=== PATIENT | male | born 1945 | race Caucasian/White ===

== ENCOUNTER → 2020-03-04 | Outpatient (CLI) | payer MEDICARE ==
--- NOTE | 2020-03-04 11:42 | XR ---
EXAMINATION TYPE: XR KUB DATE OF EXAM: 03/04/2020 Comparison: None Clinical History: 74-year-old male N20.0 Findings: Cholecystectomy clips. Moderate stool burden. 1.4 cm and adjacent 6 mm calculus right mid abdomen. 5 mm small calculus left mid abdomen. There is a 7 mm calcification in the right side of the pelvis sheridan t could represent a phlebolith. Nonobstructive bowel gas pattern. Degenerated dextro convex scoliosis lower lumbar spine. Impression: Bilateral nephrolithiasis, largest on the right measuring 1.4 cm. There is either a 7 mm calculus claudio medina phlebolith in the right side of the pelvis.
== END | disposition home or self-care (01) ==
LOC: RADXRMAIN 10:36
PROVIDERS: ATTEND Urology
DX: N20.0 Calculus of kidney (principal)
CPT/HCPCS: 74018

== ENCOUNTER → 2020-03-06 | Outpatient (CLI) | payer MEDICARE ==
--- NOTE | 2020-03-06 14:44 | CT ---
EXAMINATION TYPE: CT abdomen pelvis wo con DATE OF EXAM: 03/06/2020 COMPARISON: None HISTORY: Right sided flank pain. CT DLP: 1045 mGycm Examination of the solid and hollow viscera is limited given the lack of contrast. FINDINGS: LUNG BASES: No evidence for nodule. No evidence for infiltrate. LIVER/GB: The gallbladder is surgically absent. No space-occupying hepatic lesion. PANCREAS: No pancreatic mass identified. No inflammatory process seen. SPLEEN: No evidence for splenomegaly. No intrasplenic lesions seen. ADRENALS: No adrenal nodules identified. No evidence for thickening. KIDNEYS: 1.1 cm calculus right UPJ without significant hydronephrosis. 6.3 mm nonobstructing midpole calculus right kidney. The left kidney demonstrates 2 adjacent calculi left upper pole nonobstructing measuring a total of 6.6 mm. No additional calculi seen. No hydronephrosis is present at this time. Hypoattenuating renal lesions may reflect cysts. Largest lesion is noted involving the midpole anteri or lip left kidney and 6 cm. BOWEL: Appendix has a normal appearance. No evidence of bowel obstruction. No inflammatory process. Lymph nodes: No evidence for adenopathy greater than 1 cm. Abdominal aorta: Atheromatous changes seen. No evidence for aneurysm. Genital organs: No significant abnormality. Other: No significant abnormality. IMPRESSION: 1. Bilateral renal calculi. Largest calculus is noted within the right renal pelvis without significa nt hydronephrosis appreciated at this time.
== END | disposition home or self-care (01) ==
LOC: RADCTMAIN 14:19
PROVIDERS: ATTEND Urology
DX: N20.0 Calculus of kidney (principal); Z79.01 Long term (current) use of anticoagulants
CPT/HCPCS: 74176

== ENCOUNTER → 2020-06-03 | Outpatient (CLI) | payer MEDICARE ==
[2020-06-03 10:00] LABS: Basophils # (A) 0.1 k/uL (0-0.2); Basophils % (A) 1 %; Eosinophils # (A) 0.3 k/uL (0-0.7); Eosinophils % (A) 4 %; HCT 47.2 % (39.0-53.0); HGB 14.9 gm/dL (13.0-17.5); Lymphocytes # (A) 1.4 k/uL (1.0-4.8); Lymphocytes % (A) 18 %; MCHC 31.7 g/dL (31.0-37.0); MCV 88.6 fL (80.0-100.0); Mean Platelet Volume 7.7; Monocytes # (A) 0.7 k/uL (0-1.0); Monocytes % (A) 9 %; Neutrophils # (A) 5.2 k/uL (1.3-7.7); Neutrophils % (A) 66 %; Platelet Count 195 k/uL (150-450); RBC 5.33 m/uL (4.30-5.90); RDW 13.1 % (11.5-15.5); WBC 7.8 k/uL (3.8-10.6)
[2020-06-03 10:03] LABS: Appearance,Urine Clear (Clear); Bacteria,Urine Rare /hpf; Bilirubin,Urine Negative (Negative); Blood,Urine Moderate (Negative); Color,Urine Yellow; Glucose,Urine (UA) Negative (Negative); Ketones,Urine Negative (Negative); Leukocyte Esterase,Urine Negative (Negative); Mucus,Urine Occasional /hpf; Nitrite,Urine Negative (Negative); PH, Urine 5.5 (5.0-8.0); Protein,Urine Negative (Negative); RBC,Urine 145 /hpf (0-5); Specific Gravity,Urine 1.022 (1.001-1.035); Urobilinogen,Urine <2.0 mg/dL (<2.0); WBC,Urine 2 /hpf (0-5)
[2020-06-03 10:27] LABS: Albumin 4.4 g/dL (3.5-5.0); Calcium 9.4 mg/dL (8.4-10.2); Potassium 4.4 mmol/L (3.5-5.1); Total Bilirubin 0.6 mg/dL (0.2-1.3); Total Protein 7.5 g/dL (6.3-8.2)
== END | disposition home or self-care (01) ==
LOC: LABWHC1 08:25
PROVIDERS: ATTEND Urology
DX: Z01.818 Encounter for other preprocedural examination (principal); N20.0 Calculus of kidney; E78.49 Other hyperlipidemia; E03.8 Other specified hypothyroidism; R53.83 Other fatigue; R31.0 Gross hematuria
CPT/HCPCS: 36415; 80053; 80061; 81001; 84443; 85025; 86850; 86900; 86901; 87086; 93005

== ENCOUNTER 2020-06-10 06:12 | Day surgery (SDC) | payer MEDICARE ==
[2020-06-08 13:22] VITALS: BMI 32.5
--- NOTE | 2020-06-09 20:39 | P.GSHP ---
History of Present Illness H&P Date: 06/09/20 74 yo male with a history of stones was seen this summer for a right ureteral stone He passed it. He now comes for right pcnl to three stones in the renal pelvis. The risks, complications and alternatives have been discussed. - Constitutional Constitutional: Denies chills, Denies fever - EENT Eyes: denies blurred vision, denies pain Ears, nose, mouth and throat: Denies headache, Denies sore throat - Cardiovascular Cardiovascular: Denies chest pain, Denies shortness of breath - Respiratory Respiratory: Denies cough, Denies 7 - Gastrointestinal Gastrointestinal: Denies abdominal pain, Denies diarrhea, Denies nausea, Denies vomiting - Genitourinary (Female) Genitourinary: Denies dysuria, Denies hematuria - Genitourinary (Male) Genitourinary: Denies dysuria, Denies hematuria - Musculoskeletal Musculoskeletal: Denies myalgias - Integumentary Integumentary: Denies pruritus, Denies rash - Neurological Neurological: Denies numbness, Denies weakness - Psychiatric Psychiatric: Denies anxiety, Denies depression - Endocrine Endocrine: Denies fatigue, Denies weight change Past Medical History Past Medical History: GERD/Reflux, Hyperlipidemia, Hypertension, Myocardial Infarction ([place]), Thyroid Disorder Additional Past Medical History / Comment(s): Current Kidney stone, blood in urine. Bone spurs on his back. Last Myocardial Infarction Date:: 2001 History of Any Multi-Drug Resistant Organisms: None Reported Past Surgical History: Cholecystectomy, Heart Catheterization With Stent Past Anesthesia/Blood Transfusion Reactions: Postoperative Nausea & Vomiting (PONV) Date of Last Stent Placement:: 2001 Smoking Status: Never smoker - Past Family History Mother Family Medical History: Cancer Medications and Allergies Home Medications Medication Instructions Recorded Confirmed Type Aspirin EC [Ecotrin Low Dose] 81 mg PO DAILY 06/08/20 06/08/20 History Celecoxib [CeleBREX] 200 mg PO DAILY PRN 06/08/20 06/08/20 History Evolocumab [Repatha Syringe] 140 mg SQ Q14D 06/08/20 06/08/20 History Levothyroxine Sodium [Synthroid] 100 mcg PO DAILY 06/08/20 06/08/20 History Naproxen Sodium [Aleve] 220 mg PO BID PRN 06/08/20 06/08/20 History Omeprazole [PriLOSEC] 40 mg PO DAILY 06/08/20 06/08/20 History atenoloL [Atenolol] 25 mg PO DAILY 06/08/20 06/08/20 History Allergies Allergy/AdvReac Type Severity Reaction Status Date / Time clopidogrel [From Plavix] Allergy Dyspnea, Verified 06/08/20 12:59 hives Zmztoha-Njq-Puy Reductase AdvReac muscle Verified 06/08/20 16:19 Inhibitor aches Surgical - Exam - General well developed, well nourished, no distress - Eyes PERRL - ENT no hearing loss - Neck trachea midline - Respiratory normal expansion, normal respiratory effort - Cardiovascular Rhythm: regular - Abdomen Abdomen: soft, non tender - Genitourinary normal penis with no external lesions, testicles present - Integumentary no rash, no growths - Neurologic normal coordination, normal sensation - Musculoskeletal normal gait, normal posture - Psychiatric oriented to time, oriented to person, oriented to place, speech is normal, memory intact Results - Imaging CT scan - abdomen: report reviewed, image reviewed CT scan - pelvis: report reviewed, image reviewed Assessment and Plan Assessment: Impression: Right renal stones large Plan: Pcnl right
[~2020-06-10 06:12] MED LIST: DEXAMETHASONE SOD PHOSPHATE 10 MG/ML 1 ML VIAL IV ONE; LIDOCAINE 1% (10MG/ML) FOR IV START INTRADERMA PRN; MIDAZOLAM 2 MG/2 ML VIAL IV PRN; fentaNYL (PF) 50 MCG/ML 2 ML AMP IV PRN
[2020-06-10] MEDS ORDERED: ONDANSETRON 4 MG/2 ML VIAL ONE (06:48)
[2020-06-10] MEDS: LACTATED RINGERS 1,000 ML IV SCH ×2 (06:59→07:32)
[2020-06-10] MEDS ORDERED: LIDOCAINE 1% INJ 10MG/ML (20 ML MDV) ONE (07:25)
[2020-06-10] MEDS ORDERED: SUCCINYLCHOLINE CHLORIDE 100 MG/5 ML SYR IV ONE (07:25)
[2020-06-10] MEDS ORDERED: ePHEDrine SULFATE/0.9% NACL/PF 50 MG/5 ML SYRINGE IV ONE (07:25)
[2020-06-10] MEDS ORDERED: PROPOFOL 10 MG/ML 20 ML VIAL IV ONE (07:25)
[2020-06-10] MEDS ORDERED: GLYCOPYRROLATE 0.2 MG/ML 2 ML VIAL ONE (07:25)
[2020-06-10] MEDS ORDERED: fentaNYL (PF) 50 MCG/ML 2 ML AMP ONE (07:25)
[2020-06-10] MEDS ORDERED: NEOSTIGMINE 1 MG/ML 10 ML VIAL ONE (07:25)
[2020-06-10] MEDS ORDERED: MIDAZOLAM 2 MG/2 ML VIAL ONE (07:25)
[2020-06-10] MEDS ORDERED: ROCURONIUM BROMIDE 10 MG/ML 5 ML VIAL IV ONE (07:25)
[2020-06-10] MEDS ORDERED: PHENYLEPHRINE-0.9% NACL SYG 1 MG/10 ML SYRINGE ONE (07:25)
--- NOTE | 2020-06-10 08:03 | XR ---
EXAMINATION TYPE: XR abdomen 1V DATE OF EXAM: 06/10/2020 6:23 AM CLINICAL HISTORY: Kidney stones, preoperative study TECHNIQUE: Single supine KUB image of the abdomen is obtained. COMPARISON: CT abdomen and pelvis March 06, 2016. Abdominal x-ray March 04, 2020. FINDINGS: Stable 14 mm central right renal calculus in the pelvis. Stable 8 mm mid pole cortical calc ulus right kidney. Stable 8 mm left renal calculus over left 12th rib upper pole level. Persistent dextroconvex scoliosis with moderate to severe multilevel disc space narrowing, vacuum dis c phenomenon, spurring, and endplate sclerosis. Overall nonobstructive bowel gas pattern. Cholecystec tavia clips are redemonstrated. IMPRESSION: As above.
[2020-06-10] MEDS ORDERED: IOHEXOL 350 MG/ML 50 ML in EMPTY BAG 1 BAG IRRIGATION ONE (08:24)
[2020-06-10] MEDS ORDERED: LACTATED RINGERS 1,000 ML IV ONE ×2 (08:57)
[2020-06-10] MEDS ORDERED: ACETAMINOPHEN TAB 325 MG TAB PO PRN (09:22)
[2020-06-10] MEDS ORDERED: ONDANSETRON 4 MG/2 ML VIAL IVP PRN (09:22)
[2020-06-10] MEDS ORDERED: MAG HYDROX/AL HYDROX/SIMETH 30 ML CUP PO PRN (09:22)
[2020-06-10] MEDS ORDERED: HYDROmorphone PCA 10 MG/50 ML BAG IV PRN (09:24)
[2020-06-10] MEDS ORDERED: KETOROLAC 15 MG/ML 1 ML VIAL IVP PRN (09:24)
[2020-06-10] MEDS ORDERED: NALOXONE 0.4 MG/ML 1 ML VIAL IV PRN (09:24)
--- NOTE | 2020-06-10 09:29 | P.OP ---
Date of Procedure: 06/10/20 Preoperative Diagnosis: Right renal calculus Postoperative Diagnosis: Same Procedure(s) Performed: Cystoscopy, placement of right ureteral occluding balloon catheter, percutaneous nephrostomy (Dr. Cagle) percutaneous nephrostolithotomy with ultrasound, fle xible nephroscopy, placement of 10 J nephrostomy tube Anesthesia: PATTIE Surgeon: Leonel Edmondson Estimated Blood Loss (ml): 50 Pathology: other (Stone) Condition: stable Disposition: PACU Indications for Procedure: The patient is 74. He has kidney stone disease. He has a 15 mm renal pelvic stone and a small calyceal stone. He comes for percutaneous nephrostolithotomy right Description of Procedure: Patient is brought to the operating suite. He is given a general endotracheal anesthesia on the transport gurney. He's placed in a frog position with a sterile prep and drape. Cystoscopy of the Foroblique lens 21-Stateless sheath to find a normal urethra. The prostate is not obstructing. The right ureteral orifice is identified and intubated with a 5-Stateless occluding balloon catheter passed up into the renal pelvis. After the cystoscope was removed a 16-Stateless Lewis catheters introduced and secured to the ureteral catheter The patient is placed in a prone position with care to airways and extremities. Dr. Cagle of radiology performed nephrostomy access to the right lower pole calyx. I dilate the tract to 30-Stateless. I introduced the rigid sheath into the collecting system. Clot is removed. The large right renal pelvic stone and a small calyceal stone identified. The renal pelvic stone is broken with ultrasonic technique. The larger fragments or grasp and removed. The small calyceal stone is removed. I looked throughout the collecting system including intraoperative nephrostogram without evidence of remaining stone. I looked down the ureter there is no stone. A 10-Stateless J nephrostomy tube was introduced into the renal pelvis. It is secured to the skin. The patient is awakened and returned recovery room in good condition he tolerated procedure well Impression successful removal right renal stones.
--- NOTE | 2020-06-10 09:34 | FL ---
EXAMINATION TYPE: FL Perc Nephrostomy New Access DATE OF EXAM: 06/10/2020 COMPARISON: CT 03/06/2020, abdomen 06/10/2020 HISTORY: Right nephrolithiasis. PROCEDURE: Maximal barrier technique was utilized, hand hygiene obtained with soap and water and alcohol-based h and rub. The skin overlying the right kidney was localized using fluoroscopy and the overlying skin prepped and draped. Skin kalin was made with a scalpel. Access was gained under fluoroscopy, followin g placement of a ureteral occlusion balloon by the referring clinician and instillation of air in the renal collecting system with a 21-gauge needle to right kidney. A suitable posterior calyx was chos en. A 0.018 inch wire was advanced. The access site was dilated following exchange for a 5 Cook Islander Kumpe catheter, 0.035 inch angled Glidewire and selection of the ureter, access site was upsized, saf ety wire deployed and subsequently a sheath was advanced into the renal pelvis following dilation wit h balloon along the tract. The patient underwent nephrolithotomy by the referring clinician. The pa tient remained in stable condition without complication. The patient was discharged to observation i n the care of anesthesia. 2 minutes 51 seconds fluoroscopy time, 6 intraoperative C-arm images document the procedure IMPRESSION: STATUS POST NEPHROSTOMY PLACEMENT FOR NEPHROLITHOTOMY WITH FLUOROSCOPIC GUIDANCE. THIS PROCEDURE PER FORMED BY THE UNDERSIGNED.
[2020-06-10] MEDS ORDERED: HYDROmorphone 1 MG/ML 1 ML SYRINGE IVP ONE ×2 (09:55→10:20)
[2020-06-10] MEDS: DEXTROSE 5%-0.45% NACL 1,000 ML IV SCH ×2 (13:33→20:12)
[2020-06-10] MEDS ORDERED: BENZOCAINE/MENTHOL LOZENG 1 EACH LOZENGE MUCOUS MEM PRN (19:43)
[2020-06-11] MEDS ORDERED: NALOXONE 0.4 MG/ML 1 ML VIAL IV PRN (01:52)
[2020-06-11] MEDS ORDERED: ONDANSETRON 4 MG/2 ML VIAL IVP PRN (01:52)
[2020-06-11] MEDS: DEXTROSE 5%-0.45% NACL 1,000 ML IV SCH (05:26)
[2020-06-11] MEDS ORDERED: LEVOTHYROXINE 100 MCG TAB PO SCH (06:30)
--- NOTE | 2020-06-11 07:29 | P.DS ---
Providers Date of admission: 06/10/2020 Attending physician: Leonel Edmondson Primary care physician: [facility] Course: The patient is 74. He has a history of stones. He has an obstructing 15 mm UPJ stone and a small calyceal stone. He is admitted yesterday for percutaneous nephrostolithotomy on the right. He underwent this successfully. He did well overnight. He'll be discharged home today with his nephrostomy tube. He'll be given a prescription of [place]. He'll go home with the nephrostomy tube. He'll follow-up in the office next week for nephrostomy tube removal. Condition is good. Postoperative instructions of been given. Patient Condition at Discharge: Good Plan - Discharge Summary Discharge Rx Participant: No New Discharge Prescriptions: New HYDROcodone/APAP 5-325MG [[place] 5-325] 1 tab PO Q4HR PRN #10 tab PRN Reason: Pain No Action Naproxen Sodium [Aleve] 220 mg PO BID PRN PRN Reason: Pain Levothyroxine Sodium [Synthroid] 100 mcg PO DAILY Omeprazole [PriLOSEC] 40 mg PO DAILY Celecoxib [CeleBREX] 200 mg PO DAILY PRN PRN Reason: Pain atenoloL [Atenolol] 25 mg PO DAILY Aspirin EC [Ecotrin Low Dose] 81 mg PO DAILY Evolocumab [Repatha Syringe] 140 mg SQ Q14D Discharge Medication List Aspirin EC [Ecotrin Low Dose] 81 mg PO DAILY 06/08/20 [History] Celecoxib [CeleBREX] 200 mg PO DAILY PRN 06/08/20 [History] Evolocumab [Repatha Syringe] 140 mg SQ Q14D 06/08/20 [History] Levothyroxine Sodium [Synthroid] 100 mcg PO DAILY 06/08/20 [History] Naproxen Sodium [Aleve] 220 mg PO BID PRN 06/08/20 [History] Omeprazole [PriLOSEC] 40 mg PO DAILY 06/08/20 [History] atenoloL [Atenolol] 25 mg PO DAILY 06/08/20 [History] HYDROcodone/APAP 5-325MG [[place] 5-325] 1 tab PO Q4HR PRN #10 tab 06/11/20 [Rx] Follow up Appointment(s)/Referral(s): Leonel Edmondson MD [STAFF PHYSICIAN] - 10/06/20 Discharge Disposition: HOME SELF-CARE
[2020-06-11] MEDS ORDERED: PANTOPRAZOLE 40 MG TABLET PO SCH (07:30)
[2020-06-11 08:45] VITALS: BP 116/63; PULSE 63; RESP 15; TEMP 98
[2020-06-11] MEDS ORDERED: ASPIRIN 81 MG PO SCH (09:00)
[2020-06-11] MEDS ORDERED: atenoloL 25 MG TAB PO SCH (09:00)
== END 2020-06-11 12:39 | disposition home or self-care (01) ==
LOC: OR 06:12 → 4SSUR 11:23 → OR 06-11 12:39
PROVIDERS: ATTEND Urology
DX: N20.0 Calculus of kidney (principal); I25.2 Old myocardial infarction; I25.5 Ischemic cardiomyopathy; I25.10 Atherosclerotic heart disease of native coronary artery without angina pectoris; I10 Essential (primary) hypertension; E07.9 Disorder of thyroid, unspecified; E78.2 Mixed hyperlipidemia; E66.9 Obesity, unspecified; Z88.8 Allergy status to other drugs, medicaments and biological substances; Z79.1 Long term (current) use of non-steroidal anti-inflammatories (NSAID); Z79.82 Long term (current) use of aspirin; Z79.890 Hormone replacement therapy; Z79.899 Other long term (current) drug therapy; Z68.32 Body mass index [BMI] 32.0-32.9, adult; K21.9 Gastro-esophageal reflux disease without esophagitis; Z95.5 Presence of coronary angioplasty implant and graft; Z90.49 Acquired absence of other specified parts of digestive tract; Z80.9 Family history of malignant neoplasm, unspecified
CPT/HCPCS: 82365; 50432; 74018; 50080; C1769 ×4; C2628; C1894; C1729; J1100; J0690; J2405; J1170 ×2; Q9967; 86850; 86900; 86901

== ENCOUNTER → 2022-03-04 | Outpatient (CLI) | payer MEDICARE, BC ==
[2022-03-04 10:41] LABS: HCT 42.7 % (39.6-50.0); HGB 14.1 g/dL (13.0-17.0); MCH 28.6 pg (27.0-32.0); MCV 86.6 fL (80.0-97.0); Mean Platelet Volume 11.1 fL (9.5-12.2); NRBC Per 100 WBC 0 /100 WBCS (0.0-0.0); Platelet Count 160 X 10*3/uL (140-440); RBC 4.93 X 10*6/uL (4.40-5.60); RDW 13.4 % (11.5-14.5); WBC 6.44 X 10*3/uL (4.50-10.00)
[2022-03-04 14:58] LABS: African American GFR (CKD) 75.7 (60.0-200.0); Anion Gap 13.2 mmol/L (10.00-18.00); Blood Urea Nitrogen 22.7 mg/dL (9.0-27.0); Carbon Dioxide 21.7 mmol/L (20.0-27.5); Non-African American GFR(CKD) 65.3 (60.0-200.0); Potassium 3.9 mmol/L (3.5-5.5)
== END | disposition home or self-care (01) ==
LOC: LABPAT 07:34
PROVIDERS: ATTEND Internal Medicine
DX: Z01.812 Encounter for preprocedural laboratory examination (principal); R07.9 Chest pain, unspecified
CPT/HCPCS: 80051; 82565; 84520; 85027

== ENCOUNTER 2022-03-15 08:08 | Day surgery (SDC) | payer MEDICARE ==
[2022-03-11 08:34] VITALS: BMI 32.5
[~2022-03-15 08:08] MED LIST changes: +ALPRAZolam 0.25 MG TAB PO PRN; +ALPRAZolam 0.5 MG TAB PO PRN; +ASPIRIN 325 MG TAB PO STA; -DEXAMETHASONE SOD PHOSPHATE 10 MG/ML 1 ML VIAL IV ONE; +HEPARIN SODIUM,PORCINE 10,000 UNIT in SODIUM CHLORIDE 0.9% 1,000 ML IRRIGATION PRN; +HEPARIN SODIUM,PORCINE 2,500 UNIT in SODIUM CHLORIDE 0.9% 250 ML IRRIGATION PRN; -LIDOCAINE 1% (10MG/ML) FOR IV START INTRADERMA PRN; -MIDAZOLAM 2 MG/2 ML VIAL IV PRN; +NITROGLYCERIN SL TABS 0.4 MG TAB SUBLINGUAL PRN; +SODIUM CHLORIDE 0.9% 1,000 ML in EMPTY BAG 1 BAG IV SCH; -fentaNYL (PF) 50 MCG/ML 2 ML AMP IV PRN
[2022-03-15] MEDS ORDERED: SODIUM CHLORIDE 0.9% 1,000 ML IV ONE (08:20)
[2022-03-15 08:52] VITALS: RESP 16; TEMP 97.9
[2022-03-15] MEDS ORDERED: HEPARIN SODIUM 1,000 UN/ML (10ML VL) ONE (08:55)
[2022-03-15] MEDS ORDERED: VERAPAMIL 2.5 MG/ML 2 ML AMP ONE (08:55)
[2022-03-15] MEDS ORDERED: fentaNYL (PF) 50 MCG/ML 2 ML AMP ONE (09:00)
[2022-03-15] MEDS ORDERED: LIDOCAINE 1% INJ 10MG/ML (5 ML VIAL-PF) SQ ONE ×2 (09:21→09:25)
[2022-03-15] MEDS ORDERED: MIDAZOLAM 2 MG/2 ML VIAL IV ONE (09:21)
[2022-03-15] MEDS ORDERED: fentaNYL (PF) 50 MCG/ML 2 ML AMP IV ONE (09:21)
[2022-03-15] MEDS ORDERED: VERAPAMIL SYRINGE (5 MG/10 ML) INTRAARTER ONE (09:27)
[2022-03-15] MEDS ORDERED: HEPARIN SODIUM 1,000 UN/ML (10ML VL) IV ONE (09:30)
[2022-03-15] MEDS ORDERED: IOPAMIDOL-370 125ML BTL INJ ONE (09:39)
[2022-03-15 14:17] VITALS: BP 127/71; PULSE 63
--- NOTE | 2022-03-15 20:02 | P.CARDCATH ---
Description of Procedure: PROCEDURES PERFORMED: Bilateral coronary angiography, Left heart catheterization INDICATION: Abnormal stress test with inferior infarct by MPI with periinfarct ischemia, known CAD with prior PCI CONSENT:I have discussed the risks, benefits and alternative therapies for the above-mentioned procedure and for both sedation/analgesia as well as necessary blood product administration, if indicated, as they pertain to this patient. The patient has indicated understanding and acceptance of the risks and procedures discussed. PROCEDURE: After the risks, benefits and alternatives of the above mentioned procedure explained in detail with the patient, informed consent was obtained. Patient was taken to the catheterization lab and prepped and draped in usual fashion. 1% lidocaine was used to anesthetize the right radial artery. A 6- Sinhala sheath was placed in the right radial artery using modified Seldinger technique. Left coronary angiography was performed with a 5-Sinhala JL 3.5 catheter and right coronary angiography was performed with a 5 JR5 catheter in various views. The FR5 catheter was advanced into the LV and pressures were obtained. A TR band was placed and the sheath was removed with hemostasis was achieved. The patient tolerated the procedure well. Patient was transported back to the post catheterization holding area in stable condition. Conscious Sedation: Patient was monitored under the direct supervision of vision of myself for conscious sedation using Versed and fentanyl for a total duration of 16 minutes HEMODYNAMICS: Aorta: 133/74 LV: 138/4, LVEDP: 14mmHg SELECTIVE CORONARY ARTERIOGRAPHY: LEFT MAIN: The left main is a large caliber vessel which bifurcates into the LAD and circumflex. There is no significant stenosis. LEFT ANTERIOR DESCENDING CORONARY ARTERY: LAD is a large caliber vessel which wraps around to the apex. There is a diagonal 1 which is small to moderate caliber with a proximal 60% diagonal 1 stenosis. The mid LAD has a 50% stenosis and otherwise there are mild luminal irregularities. There are left to right collaterals to the RCA. LEFT CIRCUMFLEX CORONARY ARTERY: Left circumflex is a moderate to large caliber vessel with mild luminal irregularities. RIGHT CORONARY ARTERY: The right coronary artery is a large caliber vessel which gives off a PDA and PLV branch and is the dominant vessel. The RCA gives off a marginal branch and after the marginal, there is a stent which has 100% stenosis. FINAL IMPRESSION: 1. CAD as described above including 100% RCA stenosis with left to right collaterals, 50% mid LAD stenosis, 60% diagonal 1 stenosis. 2. Normal left sided filling pressures PLAN: 1. Aggressive risk factor modification per most recent ACC/AHA guidelines. 2. Ischemia only noted in the RCA territory with additional mild to moderate disease on the left system. Continue to treat medically and monitor symptoms. If patient has significant symptoms, may consider PCI PROGRAM MANUFACTURING LEADER RCA or functional assessment of LAD/ diagonal lesions.
== END 2022-03-15 14:13 | disposition home or self-care (01) ==
LOC: CATHCVL 08:08
PROVIDERS: ATTEND Internal Medicine
DX: I25.10 Atherosclerotic heart disease of native coronary artery without angina pectoris (principal); I25.82 Chronic total occlusion of coronary artery; E78.5 Hyperlipidemia, unspecified; I10 Essential (primary) hypertension; Z87.442 Personal history of urinary calculi; R01.1 Cardiac murmur, unspecified; Z20.822 Contact with and (suspected) exposure to COVID-19; R94.39 Abnormal result of other cardiovascular function study; Z82.49 Family history of ischemic heart disease and other diseases of the circulatory system; Z79.82 Long term (current) use of aspirin; Z79.890 Hormone replacement therapy; Z79.899 Other long term (current) drug therapy; Z88.8 Allergy status to other drugs, medicaments and biological substances
CPT/HCPCS: 93458; 87635; C1769; C1894; J2250; J2001; J3010; J1644; Q9967

== ENCOUNTER 2022-05-20 08:13 | Day surgery (SDC) | payer MEDICARE ==
[~2022-05-20 08:13] MED LIST changes: -ALPRAZolam 0.25 MG TAB PO PRN; -ALPRAZolam 0.5 MG TAB PO PRN; -ASPIRIN 325 MG TAB PO STA; -HEPARIN SODIUM,PORCINE 10,000 UNIT in SODIUM CHLORIDE 0.9% 1,000 ML IRRIGATION PRN; -HEPARIN SODIUM,PORCINE 2,500 UNIT in SODIUM CHLORIDE 0.9% 250 ML IRRIGATION PRN; +LACTATED RINGERS 1,000 ML IV SCH; -NITROGLYCERIN SL TABS 0.4 MG TAB SUBLINGUAL PRN; -SODIUM CHLORIDE 0.9% 1,000 ML in EMPTY BAG 1 BAG IV SCH
[2022-05-20 08:56] VITALS: TEMP 97.8
[2022-05-20] MEDS ORDERED: PROPOFOL 10 MG/ML 20 ML VIAL IV ONE (08:57)
--- NOTE | 2022-05-20 08:58 | P.GSHP ---
History of Present Illness H&P Date: 05/20/22 76yo M presents for screening colonoscopy. States last colonoscopy was many years ago and he does have a history of polyps. No family history of colon cancer. Denies blood in stool. States he has occasional discomfort from hemorrhoids. - Review of Systems All systems: negative Past Medical History Past Medical History: GERD/Reflux, Hyperlipidemia, Hypertension, Myocardial Infarction ([place]), Syncope, Thyroid Disorder Additional Past Medical History / Comment(s): arthritis arms back. + cologard, 2001 [place], Last Myocardial Infarction Date:: 2001 History of Any Multi-Drug Resistant Organisms: None Reported Past Surgical History: Appendectomy, Heart Catheterization, Heart Catheterization With Stent Additional Past Surgical History / Comment(s): heart cath with a stent 2001,heart cath 04/01 stent plugged veins grew around stent per pt, Past Anesthesia/Blood Transfusion Reactions: Postoperative Nausea & Vomiting (PONV) Additional Past Anesthesia/Blood Transfusion Reaction / Comment(s): no blood transfusions Date of Last Stent Placement:: 2001 Smoking Status: Never smoker - Past Family History Mother Additional Family Medical History / Comment(s): unsure Father Additional Family Medical History / Comment(s): bypass surgery Medications and Allergies Home Medications Medication Instructions Recorded Confirmed Type Aspirin EC [Ecotrin Low Dose] 81 mg PO DAILY 06/08/20 05/19/22 History Celecoxib [CeleBREX] 200 mg PO DAILY PRN 06/08/20 05/19/22 History Evolocumab [Repatha Syringe] 140 mg SQ Q14D 06/08/20 05/20/22 History Levothyroxine Sodium [Synthroid] 125 mcg PO DAILY 06/08/20 05/20/22 History Naproxen Sodium [Aleve] 220 mg PO BID PRN 06/08/20 05/19/22 History Omeprazole [PriLOSEC] 40 mg PO DAILY 06/08/20 05/20/22 History atenoloL 25 mg PO BID 06/08/20 05/20/22 History Nitroglycerin Sl Tabs [Nitrostat] 0.4 mg SUBLINGUAL Q5M PRN 03/11/22 05/19/22 History Allergies Allergy/AdvReac Type Severity Reaction Status Date / Time clopidogrel [From Plavix] Allergy Dyspnea, Verified 05/20/22 08:44 hives Uyirjlw-YZJ-FcI Reductase AdvReac muscle Verified 05/20/22 08:44 Inhibitor aches [Veesywd-Vth-Pcs Reductase Inhibitor] Surgical - Exam Osteopathic Statement: *. No significant issues noted on an osteopathic structural exam other than those noted in the History and Physical/Consult. Vital Signs Temp Pulse Resp BP Pulse Ox 97.8 F 65 18 133/67 98 05/20/22 08:38 05/20/22 08:38 05/20/22 08:38 05/20/22 08:38 05/20/22 08:38 - General well nourished, no distress - Eyes normal ocular movement - ENT no hearing loss - Neck trachea midline - Abdomen Abdomen: soft, non tender Assessment and Plan Plan: 76yo M presents for screening colonoscopy. Risks, benefits and alternatives were provided prior to obtaining consent. Further recommendations after procedure is complete.
--- NOTE | 2022-05-20 09:13 | P.PCN ---
Date of Procedure: 05/20/22 Preoperative Diagnosis: Screening for colon cancer Postoperative Diagnosis: Sigmoid colon polyp Diverticulosis Procedure(s) Performed: Colonoscopy with hot snare polypectomy Anesthesia: MAC Surgeon: Anmol Zapata Pathology: other (Sigmoid polyp) Condition: stable Disposition: same day Indications for Procedure: 76yo M presents for screening colonoscopy. Risks, benefits and alternatives were provided. Operative Findings: Sigmoid polyp Diverticulosis Description of Procedure: The patient was brought to the endoscopy suite. The patient was then placed in left lateral decubitus position and adequate sedation was achieved using conscious sedation. A digital rectal exam was performed and internal hemorrhoids were palpated. An endoscope was then placed in the rectum and advanced to the cecum as identified by landmarks including the appendix orifice and the ileocecal valve. The prep was good. The colonoscope was then slowly withdrawn, examining for any mucosal abnormalities. The cecum, ascending, transverse, descending and sigmoid colon were visualized adequately. There were no large neoplastic lesions noted throughout the colon. Small polyp was noted in the sigmoid colon. This was removed with the hot snare polypectomy. Hemostasis was maintained. Mild diverticulosis was noted throughout the sigmoid colon. Retroflexion was performed in the rectum and internal hemorrhoids were visible. Excess air was removed, the colonoscope withdrawn and the procedure terminated. The patient was then transferred to the recovery unit in stable condition. Repeat colonoscopy should be performed in 5 years.
[2022-05-20 09:18] VITALS: RESP 16
[2022-05-20 09:38] VITALS: BP 105/64; PULSE 66
== END 2022-05-20 10:01 | disposition home or self-care (01) ==
LOC: ORWHC2ENDO 08:13
PROVIDERS: ATTEND Surgery
DX: Z12.11 Encounter for screening for malignant neoplasm of colon (principal); D12.5 Benign neoplasm of sigmoid colon; K57.30 Diverticulosis of large intestine without perforation or abscess without bleeding; K64.8 Other hemorrhoids; K21.9 Gastro-esophageal reflux disease without esophagitis; I10 Essential (primary) hypertension; E78.5 Hyperlipidemia, unspecified; I25.2 Old myocardial infarction; Z88.8 Allergy status to other drugs, medicaments and biological substances; Z79.899 Other long term (current) drug therapy; Z79.890 Hormone replacement therapy; Z79.82 Long term (current) use of aspirin; Z80.9 Family history of malignant neoplasm, unspecified; Z90.49 Acquired absence of other specified parts of digestive tract
CPT/HCPCS: 88305; 45385; J2704

== ENCOUNTER → 2023-04-05 | Outpatient (CLI) | payer MEDICARE ==
--- NOTE | 2023-04-05 20:01 | NM ---
EXAMINATION TYPE: NM bone scan whole body DATE OF EXAM: 04/05/2023 COMPARISON: NONE CLINICAL INDICATION: Male, 77 years old with history of M54.2 CERVICALGIA; TECHNIQUE: Delayed whole-body scanning was performed following the injection of 23.2 mCi Tc 99m MDP. Images acquired 4.5 hours post injection. FINDINGS: There is degenerative tracer activity at the right greater than left shoulders as well as the sternoc lavicular joints. Some asymmetric degenerative tracer activity towards the right within the cervical spine. Additional asymmetric degenerative tracer activity within the left knee and right first MTP j oint. No suspicious foci of activity to suggest metastatic disease. IMPRESSION: 1. Scattered degenerative tracer activity such as in the right greater than left shoulders, both ster noclavicular joints, along the right side of the cervical spine, and in the knees, particularly on th e left. Also, involving the right first MTP joint. 2. No scintigraphic evidence for osseous metastatic disease.
== END | disposition home or self-care (01) ==
LOC: RADNMMAIN 10:13
PROVIDERS: ATTEND Family Medicine
DX: M19.011 Primary osteoarthritis, right shoulder (principal); M19.012 Primary osteoarthritis, left shoulder; M17.0 Bilateral primary osteoarthritis of knee; M54.2 Cervicalgia
CPT/HCPCS: 78306; A9503

== ENCOUNTER → 2024-02-12 | Outpatient (CLI) | payer MEDICARE ==
[2024-02-12 10:58] LABS: ALT 17 U/L (10-49); AST 22 U/L (14-35); Chol/HDL Ratio 7.52 Ratio; LDL Cholesterol,Calculated 129.6 mg/dL (0.0-131.0)
== END | disposition home or self-care (01) ==
LOC: LABWHC1 06:56
PROVIDERS: ATTEND Nurse Practitioner Acute Care
DX: E78.2 Mixed hyperlipidemia (principal)
CPT/HCPCS: 36415; 80061; 84450; 84460

== ENCOUNTER → 2024-03-21 | Outpatient (CLI) | payer MEDICARE ==
--- NOTE | 2024-03-23 12:34 | MR ---
EXAMINATION TYPE: MR lumbar spine wo con DATE OF EXAM: 03/21/2024 COMPARISON: None HISTORY: Lower back pain, radiates into right hip. CONTRAST: 0 mL intravenous Gadavist. TECHNIQUE: Multiplanar, multisequence images of the lumbar spine were acquired. FINDINGS: Cord terminates at the L1-2 level. L5-S1: Mild disc bulge is present without contact. Ligamentum flavum laxity and facet hypertrophy is present. This has some right posterior lateral thecal sac compression. Severe right and moderate left foraminal narrowing is present. L4-L5: There is loss of disc height this level. Residual disc bulge with mild anterior thecal sac con tact. Facet hypertrophy has right lateral thecal sac impression. Some milder left posterior lateral t hecal sac compression. Ligamentum flavum laxity is present. No spinal canal stenosis is present. Mode rate right and severe left foraminal stenosis is present. L3-L4: There is narrowing of disc height. Mild residual mild anterior thecal sac compression. No AP s leona canal stenosis is present. Left posterior lateral thecal sac compression from facet hypertrophy and ligamentum flavum laxity is present. There is moderate to severe right and severe left foraminal stenosis. L2-L3: Mild right paracentral disc bulge with mild anterior thecal sac compression. No AP spinal sybil l stenosis present. No foraminal stenosis. L1-L2: No significant disc bulge or disc herniation. No spinal canal stenosis. No foraminal stenosi s. T12-L1: No significant disc bulge or disc herniation. No spinal canal stenosis. No foraminal stenos is. Left renal cyst is present on the cortex IMPRESSION: 1. Facet hypertrophy and ligamentum flavum laxity L3-4 through L5-S1 contributing to foraminal stenos is. Severe foraminal stenosis is present on the left at L3-4, left L4-5, right L5-S1. Correlate with radicular symptoms. 2. Degenerative disc changes with loss of disc height L3-4, L4-5.
== END | disposition home or self-care (01) ==
LOC: RADMRIMAIN 17:11
PROVIDERS: ATTEND Orthopaedic Surgery Orthopaedic Surgery of the Spine
DX: M51.36 Other intervertebral disc degeneration, lumbar region (principal); E66.9 Obesity, unspecified; M50.322 Other cervical disc degeneration at C5-C6 level; M54.12 Radiculopathy, cervical region; M50.323 Other cervical disc degeneration at C6-C7 level; M47.812 Spondylosis without myelopathy or radiculopathy, cervical region; M79.12 Myalgia of auxiliary muscles, head and neck; M48.061 Spinal stenosis, lumbar region without neurogenic claudication
CPT/HCPCS: 72148